=== PATIENT | female | born 1955 | race Caucasian/White ===

== ENCOUNTER 2017-09-22 17:22 | Emergency (ER) | payer OTHER | END 2017-09-22 19:53 | disposition home or self-care (01) | LOC: E/R 19:53 | DX: A49.9 Bacterial infection, unspecified (principal); I10 Essential (primary) hypertension | CPT/HCPCS: 99284; Z7502 ==

== ENCOUNTER 2017-11-27 15:25 | Emergency (ER) | payer SELFPAY, OTHER | END 2017-11-27 19:25 | disposition left against medical advice (07) | LOC: E/R 19:25 | DX: Z53.21 Procedure and treatment not carried out due to patient leaving prior to being seen by health care provider (principal) ==

== ENCOUNTER 2018-03-17 10:56 | Emergency (ER) | payer OTHER ==
[2018-03-17 11:21] LABS: URINE BLOOD (Dip) POC 1+ (NEGATIVE); URINE GLUCOSE (Dip) POC Negative (NEGATIVE); URINE KETONES (Dip) POC Negative (NEGATIVE); URINE LEUKOCYTE EST (Dip) POC 1+ (NEGATIVE); URINE NITRITE (Dip) POC Negative (NEGATIVE); URINE TOTAL PROTEIN POC Negative (NEGATIVE)
[2018-03-17 11:21] LABS: URINE PH (Dip) POC 6.5 (5.0-8.5)
[2018-03-17] MEDS: KETOROLAC 60 MG INJ IM (11:27)
== END 2018-03-17 13:21 | disposition home or self-care (01) ==
LOC: FTE 10:56
DX: R10.32 Left lower quadrant pain (principal); I10 Essential (primary) hypertension
CPT/HCPCS: 73510; 74176; 81003; 96372; 99285-25

== ENCOUNTER 2019-01-25 10:13 | Emergency (ER) | payer OTHER ==
[2019-01-25] MEDS: DEXAMETHASONE 10 MG/ML 1 ML INJ PO (11:07)
== END 2019-01-25 11:57 | disposition home or self-care (01) ==
LOC: FTE 10:13
DX: J40 Bronchitis, not specified as acute or chronic (principal); I10 Essential (primary) hypertension
CPT/HCPCS: 71045; 99283-25